=== PATIENT | female | born 1950 | race Caucasian/White ===

== ENCOUNTER 2016-06-15 09:36 | Day surgery (SDC) | payer BC, OTHER ==
[2016-06-15] MEDS ORDERED: TETRACAINE 0.5% OPHTH 1 DOSE AFFEYE ONE ×4 (09:59→12:37)
[2016-06-15] MEDS ORDERED: VIGAMOX 0.5% OPHTH 1 DOSE AFFEYE ONE ×5 (10:00→12:50)
[2016-06-15] MEDS ORDERED: PROLENSA OPHTH 1 DOSE AFFEYE ONE (10:11)
[2016-06-15] MEDS ORDERED: ALPHAGAN-P OPHTH 1 DOSE AFFEYE ONE (10:12)
[2016-06-15] MEDS ORDERED: CYCLOGYL 1% OPHTH 1 DOSE OP ONE ×4 (10:13→10:16)
[2016-06-15] MEDS ORDERED: AK-DILATE 2.5% OPHTH 1 DOSE OP ONE ×3 (10:13→10:15)
[2016-06-15] MEDS ORDERED: MYDRIACIL OPHTH 1 DOSE AFFEYE ONE ×4 (10:13→10:16)
[2016-06-15] MEDS ORDERED: AK-DILATE 2.5% OPHTH 1 DOSE EACHEYE ONE (10:16)
[2016-06-15] MEDS ORDERED: NS 500 ML IV 500 ML IV ONE (10:32)
[2016-06-15] MEDS ORDERED: BETADINE OPHTH SOLN 5% EACHEYE ONE (12:28)
[2016-06-15] MEDS ORDERED: ADRENALINE CHL INJ IJ ONE ×2 (12:33→12:37)
[2016-06-15] MEDS ORDERED: DUOVISC IO ONE ×2 (12:34→12:37)
[2016-06-15] MEDS ORDERED: XYLOCAINE-MPF 1% IJ ONE ×2 (12:34→12:37)
[2016-06-15] MEDS ORDERED: BSS OPHTH (PLAIN) 500 ML with VANCOMYCIN HCL 500 MG VIAL 25 MG, ADRENALINE CHL INJ 1 MG IR ONE ×3 (12:37)
[2016-06-15 15:27] VITALS: BP 163/78
== END 2016-06-15 13:15 | disposition home or self-care (01) ==
LOC: SURG1 09:36
PROVIDERS: ATTEND Ophthalmology
PROC: 08J1XZZ Inspection of Left Eye, External Approach (ICD-10-PCS; principal; 2016-06-15 17:15)
PROC: 08DK3ZZ Extraction of Left Lens, Percutaneous Approach (ICD-10-PCS; principal; 2016-06-15 17:15)
PROC: 08RK3JZ Replacement of Left Lens with Synthetic Substitute, Percutaneous Approach (ICD-10-PCS; principal; 2016-06-15 17:15)
DX: H25.12 Age-related nuclear cataract, left eye (principal); H25.012 Cortical age-related cataract, left eye; H25.042 Posterior subcapsular polar age-related cataract, left eye; H52.222 Regular astigmatism, left eye
CPT/HCPCS: A4217; J0170; J3370

== ENCOUNTER 2016-06-22 07:38 | Day surgery (SDC) | payer BC, OTHER ==
[2016-06-22] MEDS ORDERED: TETRACAINE 0.5% OPHTH 1 DOSE AFFEYE ONE ×2 (08:15→10:24)
[2016-06-22] MEDS ORDERED: VIGAMOX 0.5% OPHTH 1 DOSE AFFEYE ONE ×4 (08:16→10:45)
[2016-06-22] MEDS ORDERED: PROLENSA OPHTH 1 DOSE AFFEYE ONE (08:27)
[2016-06-22] MEDS ORDERED: ALPHAGAN-P OPHTH 1 DOSE AFFEYE ONE (08:28)
[2016-06-22] MEDS ORDERED: AK-DILATE 2.5% OPHTH 1 DOSE OP ONE ×3 (08:30→08:34)
[2016-06-22] MEDS ORDERED: MYDRIACIL OPHTH 1 DOSE AFFEYE ONE ×3 (08:30→08:34)
[2016-06-22] MEDS ORDERED: CYCLOGYL 1% OPHTH 1 DOSE OP ONE ×3 (08:30→08:34)
[2016-06-22] MEDS: NS 500 ML IV 500 ML IV ONE (08:50)
[2016-06-22] MEDS ORDERED: BETADINE OPHTH SOLN 5% EACHEYE ONE (10:24)
[2016-06-22] MEDS ORDERED: ADRENALINE CHL INJ IJ ONE (10:34)
[2016-06-22] MEDS ORDERED: XYLOCAINE-MPF 1% IJ ONE (10:34)
[2016-06-22] MEDS ORDERED: DUOVISC IO ONE (10:36)
[2016-06-22] MEDS ORDERED: BSS OPHTH (PLAIN) 500 ML with VANCOMYCIN HCL 500 MG VIAL 25 MG, ADRENALINE CHL INJ 1 MG IR ONE ×3 (10:37)
[2016-06-22] MEDS ORDERED: DIPRIVAN VIAL ONE (15:27)
[2016-06-22 15:49] VITALS: BP 146/76
== END 2016-06-22 11:10 | disposition home or self-care (01) ==
LOC: SURG1 07:38
PROVIDERS: ATTEND Ophthalmology
PROC: 08J0XZZ Inspection of Right Eye, External Approach (ICD-10-PCS; principal; 2016-06-22 10:30)
PROC: 08DJ3ZZ Extraction of Right Lens, Percutaneous Approach (ICD-10-PCS; principal; 2016-06-22 10:30)
PROC: 08RJ3JZ Replacement of Right Lens with Synthetic Substitute, Percutaneous Approach (ICD-10-PCS; principal; 2016-06-22 10:30)
DX: H25.11 Age-related nuclear cataract, right eye (principal); H25.011 Cortical age-related cataract, right eye; H25.041 Posterior subcapsular polar age-related cataract, right eye; H52.221 Regular astigmatism, right eye
CPT/HCPCS: A4217; J0170; J3370; J3490